=== PATIENT | male | born 2000 | race Caucasian/White ===

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

== ENCOUNTER 2021-03-05 15:48 | Emergency (ER) | payer OTHER, MEDICAID, SELFPAY ==
[2021-03-05 17:21] VITALS: BP 139/90; PULSE 75; RESP 18; TEMP 36.8; O2SAT 98
--- NOTE | 2021-03-05 17:34 | ED.WOUNDLAC ---
HPI - Wound/Laceration General Chief Complaint: Wound/Laceration Stated Complaint: head laceration/injury Time Seen by Provider: 03/05/21 17:06 Source: patient Mode of arrival: ambulatory Limitations: no limitations History of Present Illness HPI narrative: This is a 20-year-old male that presents to the emergency department after head injury today. Reports he bent down and hit his head on a forklift. Reports a laceration to the left eyebrow. He is up to date on tetanus. Denies loss of consciousness, vision changes, vomiting, numbness, or weakness. Related Data Home Medications Medication Instructions Recorded Confirmed omeprazole 40 mg PO DAILY 03/05/21 03/05/21 Allergies Allergy/AdvReac Type Severity Reaction Status Date / Time No Known Allergies Allergy Verified 03/05/21 17:20 Review of Systems Review of Systems: CONSTITUTIONAL: Denies fever EYES: Denies visual changes GASTROINTESTINAL: Denies vomiting NEUROLOGIC: Denies headache, numbness, or weakness. All systems reviewed & are unremarkable except as noted in HPI and below PMFSH Past Medical History Medical History (Updated 03/05/21 @ 18:23 by Eileen Wakefield PA-C) Left knee pain Patient denies medical problems Surgical History Surgical History H/O knee surgery Family History Family History Other Diabetes mellitus Family history of mental disorder Social History Social History Smoking status: Current every day smoker Tobacco type: e-cigarettes/vaping Alcohol intake: never Substance use type: marijuana Gender identity (if verbalized by the patient): Male Exam Narrative: GENERAL: Well-appearing, well-nourished, and in no acute distress. HEAD: Normocephalic. 2cm linear laceration into subcutaneous tissue over the left eyebrow EYES: PERRLA and EOMI. ENT: Nares clear, no rhinorrhea or epistaxis. Mucous membranes moist. Oropharynx without tonsillar hypertrophy exudate or other lesions. Bilateral TMs pearly rome non-bulging NECK: Supple. No adenopathy or masses. CHEST: Clear to auscultation. No respiratory distress. No wheezes rales or rhonchi HEART: Regular rate and rhythm. No murmur heard. Normal peripheral pulses. EXTREMITIES: Normal range of motion. No edema. Strength equal in bilateral upper extremities (5/5) SKIN: Warm, dry, no rash. NEURO: No focal deficits. Alert and oriented x3. Cranial nerves II through XII grossly intact PSYCH: Normal mood and affect Course Vital Signs Vital signs: Vital Signs Temperature 98.3 F 03/05/21 17:21 Pulse Rate 75 03/05/21 17:21 Respiratory Rate 18 03/05/21 17:21 Blood Pressure 139/90 03/05/21 17:21 Pulse Oximetry 98 03/05/21 17:21 Temperature 98.3 F 03/05/21 17:21 Pulse Rate 75 03/05/21 17:21 Respiratory Rate 18 03/05/21 17:21 Blood Pressure 139/90 03/05/21 17:21 Pulse Oximetry 98 03/05/21 17:21 Procedures Laceration Laceration 1: Date: 03/05/21 Time: 18:20 Site: face Side (If applicable): left Size (cm): 2 Description: linear Depth: simple, single layer Local Anesthetic: lidocaine 1% and with epi Amount of anesthesia used (mL): 2 Pre-repair: wound explored and irrigated ====== Skin Level ====== Skin layer closed with: nylon Size (cm): 5-0 Number of sutures: 3 Technique: simple, interrupted ====== Subcutaneous Layer ====== ====== Muscle Layer ====== ====== Tendon Layer ====== MDM - Wound/Laceration MDM Narrative Medical decision making narrative: Patient presents to the emergency department after a head injury today. Reports he bent down and hit his head on the edge of a forklift. Denies loss of consciousness, vision changes, vomiting, numbness, or weaknes
== END 2021-03-05 19:09 | disposition home or self-care (01) ==
PROVIDERS: Emergency Provider Emergency Medicine; PCP Family Medicine
DX: S01.112A Laceration without foreign body of left eyelid and periocular area, initial encounter (principal); W22.09XA Striking against other stationary object, initial encounter
CPT/HCPCS: 12011; 99282

== ENCOUNTER 2022-05-22 10:38 | Outpatient (CLI) | payer OTHER, SELFPAY ==
--- NOTE | ~2022-05-22 | XR_ITS ---
Lumbosacral Spine: AP and lateral views Clinical History: Pain Findings: The normal lordotic curve is maintained. The vertebral bodies and posterior elements are i ntact. The intervertebral disc spaces are preserved. The sacroiliac joints are normally outlined. Impression: No significant abnormality. Reviewed, dictated and finalized at [facility]. 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
--- NOTE | ~2022-05-22 | XR_ITS ---
XR knee LT 3V DATE: 05/22/2022 11:23 INDICATION: Left knee pain after twisting injury 3 weeks ago TECHNIQUE: 4 views COMPARISON: 08/29/2020 left knee 06/09/2018 MR left knee FINDINGS: Old healed medial tibial plateau fracture deformity. Knee joint spaces are well preserved. No recent fracture or dislocation, periosteal reaction or bone destruction. No radiopaque intra-artic ular loose body or chondrocalcinosis. No periosteal reaction or bone destruction. IMPRESSION: No acute finding Reviewed, dictated and finalized at location [facility]. 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
--- NOTE | ~2022-05-22 | XR_ITS ---
Thoracic spine: Clinical Indication: Back pain AP and lateral views were performed. No fracture is seen. There is normal alignment of the vertebrae. The intervertebral disc spaces appe ar normal. Paravertebral soft tissues appear normal. Impression: No significant abnormalities noted. Reviewed, dictated and finalized at [facility]. 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
== END 2022-05-22 10:39 | disposition home or self-care (01) ==
PROVIDERS: PCP Family Medicine; Visit Provider Family Medicine
DX: M25.562 Pain in left knee (principal); M54.50 Low back pain, unspecified
CPT/HCPCS: 72072; 72100; 73562

== ENCOUNTER 2024-05-12 13:57 | Outpatient (CLI) | payer BC, SELFPAY ==
--- NOTE | ~2024-05-12 | XR_ITS ---
EXAM: XR ankle LT min 3V, XR foot LT min 3V DATE: 05/12/2024 14:28 (accession [id number]), 05/12/2024 14:29 (accession [id number]) HISTORY: POST. ANKLE PAIN THRU TOP OF FOOT,S/P RAN UP FOOTW/HVY LOAD . COMPARISON: 06/21/2017. FINDINGS: Normal mineralization. No fracture or dislocation. No lytic or blastic lesion. Joint space s are maintained. Prominent os trigonum. No erosion or periosteal change. Soft tissues within normal limits. IMPRESSION: No acute osseous finding in the left ankle or foot. Prominent os trigonum which can be a source of chronic ankle pain in some patients. Reviewed, dictated and finalized at location [facility]. 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 Prominent os tr igonum which can be a source of chronic ankle pain in some patients.
== END 2024-05-12 13:58 | disposition home or self-care (01) ==
PROVIDERS: PCP Family Medicine; Visit Provider Family Medicine
DX: M25.572 Pain in left ankle and joints of left foot (principal)
CPT/HCPCS: 73610; 73630

== ENCOUNTER 2024-05-24 13:59 | Outpatient (RCR) | payer OTHER, SELFPAY ==
--- NOTE | 2024-05-24 16:11 | OPREHPOC ---
Outpatient Therapy Plan of Care This is a Multidisciplinary Plan of Care that may contain components documented by all disciplines (PT, OT, and ST.) PT Problem 1 PT Problem #1 Knowledge Deficit PT Goal 1 Goal / Goal Update Independent with HEP Target Visit 2 PT Problem 2 PT Problem #2 Pain PT Goal 1 Goal / Goal Update Pt to report no more than 4/10 pain when standing for more than 2 hours. Pt to report no more than 4/10 pain when standing for more than 2 hours to improve standing tolerance at work. Target Visit 12 PT Problem 3 PT Problem #3 Impaired Range of Motion PT Goal 1 Goal / Goal Update Pt to improve left ankle dorsiflexion AROM to 10 degrees. 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 Target Visit 12 PT Problem 4 PT Problem #4 Impaired Functional Mobility PT Goal 1 Goal / Goal Update Pt to be able to push/pull 50lbs without left ankle pain. 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 Target Visit 12
--- NOTE | 2024-05-24 16:11 | PTOPEVAL1 ---
Assessment and note entered by Nadja Azevedo, PT Evaluation Information Assessment Status Evaluation ICD-10 Condition Codes (PT) Pain in left ankle and joints of left foot M25.572 Onset 04/28/24 Subjective Information Pt reports onset of left ankle pain beginning last month at work when he accidentally rolled over his left foot with an electric palatte marlon that had approx. 700lbs loaded onto it. Pt reports he did get an xray of his foot after this happened which was negative for fractures. Since this incident occurred pt reports ankle stiffness, a tingling sensation along his hanley when lifting his toes up, and pain radiating from the ball of his foot to his. 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 Reported Pain Level Pain Score 6: Self Report Assessment PT Clinical Summary Mr. Birch is a 23 year old male presenting to physical therapy for left ankle pain after an incident at work. Plan of Care Interventions Electrical Stimulation,Gait Training,Hot Pack/Cold Pack,Manual Therapy,Neuro Re-education,Patient/ Caregiver Education,Therapeutic Activities, Therapeutic Exercise,Self-Care/Home Management PT Services Indicated Yes Treatment Frequency and 2x/week for 12 visits Duration These treatments will address the objective and functional deficits as defined above. The patient will be advanced safely and appropriately in order for the patient to progress towards his/her prior level of function. Additional exercises will be introduced and as well as a comprehensive home exercise program upon discharge, if needed, ?to ensure carryover of functional gains achieved in the clinic. This treatment plan has been reviewed and agreement upon by the patient.
--- NOTE | 2024-06-16 15:49 | PCPTNOTE ---
Cancelled session due to illness.
--- NOTE | 2024-06-21 17:45 | OPREHPOC ---
Outpatient Therapy Plan of Care This is a Multidisciplinary Plan of Care that may contain components documented by all disciplines (PT, OT, and ST.) PT Problem 1 PT Problem #1 Knowledge Deficit PT Goal 1 Goal / Goal Update Independent with HEP Target Visit 2 Progress Met PT Problem 2 PT Problem #2 Pain PT Goal 1 Goal / Goal Update Pt to report no more than 4/10 pain when standing for more than 2 hours. Pt to report no more than 4/10 pain when standing for more than 2 hours to improve standing tolerance at work. Target Visit 12 Progress Met PT Problem 3 PT Problem #3 Impaired Range of Motion PT Goal 1 Goal / Goal Update Pt to improve left ankle dorsiflexion AROM to 10 degrees. 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 Target Visit 12 Progress Partially Met PT Problem 4 PT Problem #4 Impaired Functional Mobility PT Goal 1 Goal / Goal Update Pt to be able to push/pull 50lbs without left ankle pain. 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 Target Visit 12 Progress Met
--- NOTE | 2024-06-21 17:45 | PTOPDC ---
Assessment and note entered by Nadja Azevedo, PT Evaluation Information Assessment Status Discharge ICD-10 Condition Codes (PT) Pain in left ankle and joints of left foot M25.572 Onset 04/28/24 Subjective Information Pt reports 70-80% improvement in left foot/ankle pain since beginning therapy. He notes the most improvement in his pain when walking. He states he 's able to stand at work for up to 2 hours without pain but when he's on his feet for more than 5 hours at a time he starts to feel pain. 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 Reported Pain Level Pain Score 3: Self Report Assessment PT Clinical Summary Mr. Birch has 8 total skilled physical therapy visits for left ankle pain following an injury at work. Since beginning therapy Mr. Birch has improved in left ankle strength and ROM and is now able to stand for over 2 hours at work without ankle pain. He does not occasional left ankle pain at work that occurs with certain activities such as loading coils or when he weight shifts abnormally while loading coils, however this pain is intermittent and does not hinder work performance. Mr. Birch has met or partially met all therapeutic goals set for him and therefore skilled therapy services are no longer needed. Plan of Care PT Services Indicated No
== END 2024-06-21 20:00 | disposition home or self-care (01) ==
LOC: CHSPT 13:59
PROVIDERS: PCP Family Medicine; Visit Provider Family Medicine
DX: M79.672 Pain in left foot (principal)
CPT/HCPCS: 97110; 97140; 97150; 97161; 97530